=== PATIENT | female | born 1985 | race Caucasian/White ===

== ENCOUNTER 2016-09-04 20:32 | Emergency (ER) | payer OTHER ==
[2016-09-04 20:50] VITALS: BMI 33.1
--- NOTE | 2016-09-04 20:56 | EDPRACDOC ---
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 PT STATES HAD "THE FLU" 2 WEEKS AGO, TREATED WITH TAMIFLU, WAS FEELING BETTER UNTIL THIS WEEK. Symptoms Started: Reports: Gradually Symptoms Description: Constant Weakness: Bilateral: Generalized Symptoms: Reports: Weak. Denies: Change of vision, Difficult speech, Faintness , Imbalance, Numbness, Near Syncope, On Med questionable toxic, Syncope, Tinnitus, Vertigo Symptom Severity: Reports: Does not affect activitiy Relevant History of: Denies: Anemia, CVA, DM, Electrolyte disorder, GI Bleed, [place] , TIA Associated signs and symptoms:: Reports: Fever, Headache, Palpitations. Denies : GI Bleed, Chest pain, Diarrhea, Nausea, Vomiting ED Past Medical History - History Reviewed Yes Nurses notes reviewed and agree except as marked No Past Medical History: Yes Patient has no past medical history - Patient Medical History Psychological History: Denies: Depression Surgical History: Reports: Cholecystectomy, Hysterectomy, Tonsillectomy/ Adnoidectomy - Social Medical History Smoking Status: Never smoker ETOH: None Substance Abuse: None EDM Review of Systems - Review of Systems Constitutional: Chills, Fever, Fatigue, Weakness Eyes: negative: Blurred Vision, Double Vision Ears: negative: Drainage Throat: negative: Pain Nose: negative: Congestion, Discharge Respiratory: Cough, Shortness of Breath. negative: Wheezing Cardiovascular: Palpitations. negative: Chest Pain Gastrointestinal: negative: Diarrhea, Nausea, Pain, Vomiting Genitourinary: negative: Dysuria, Frequency Neurological: Dizziness, Headache. negative: Numbness, Weakness Musculoskeletal: No Symptoms Reported Integumentary: No Symptoms Reported - Physical Exam Constitutional: Alert (Awake), No apparent distress Oriented to: Time, Person, Place Last recorded Vital Signs: Last Vital Signs Temp 98.4 F 09/04/16 20:42 Pulse 160 H 09/04/16 20:42 Resp 20 09/04/16 20:42 BP 134/62 09/04/16 20:42 Pulse Ox 98 09/04/16 20:42 Oxygen Pulse Oxygen Saturation 98 O2 Device Room Air Oxygen Flow Rate Fraction of Inspired Oxygen ( FIO2) - HEENT Head: Normal ( normocephalic) Eye Exam: Normal (PERRL, EOMI, Sclera white) Oropharynx: Normal (Pharynx:Moist without exudate,Gums-no swelling) Tympanic Membrane: Normal ENT EAC: Normal TMJ: Normal Nose: No Symptoms Reported (septum midline) Neck: Normal (FROM, trachea at midline) - Respiratory/Cardiovascular Respiratory: Normal - CTA (BBS clear to auscultation without adventitious sounds ) Cardiovascular: Tachycardia. negative: Irregular, Diastolic murmur, Systolic murmur - GI Auscultation: Normal (NABS) Palpation: Normal (Soft,No rebound or guarding, non distended) Tenderness: Non tender Mayfield's Sign: Negative - Musculoskeletal Back: Normal (Non-Tender) Extremities: Normal (Normal tone, Pulses 2+ No cyanosis or edema, FROM) - Integumentary Skin: Normal, Warm, Dry Lymphatics: Normal (no adenopathy) - Neurologic Memory Impaired: Normal Motor Function: Normal (Normal tone, Pulses 2+ No cyanosis or edema, FROM) Cranial Nerve: Normal (CN II-X11 intact sensation, strength 5/5) Cerebellar: Normal Mood Description: Normal Perception: Normal - Differential Diagnosis Anemia, Dehydration, Dysrhythmia, Electrolyte disorder, Medication toxicity - Re-evaluation Re-evaluation 1 Re-evaluation Time: 22:13 (STATES CONTINUES TO FEEL "FUNNY" IN HER CHEST, DIZZY) Re-evaluation 2 Re-evaluation Time: 00:29 (FEELS BETTER, HEART RATE NOW 90s) - Results 09/04/16 21:00 09/04/16 21:00 09/04/16 22:14 Laboratory Results - last 24 hr 09/04/16 09/04/16 09/04/16 21:00 21:00 21:00 WBC 9.9 RBC 5.11 Hgb 14.3 Hct 41.5 MCV 81 MCH 28.0 MCHC 34.5 RDW 13.5 Plt Count 248 MPV 8.0 Neut % (Auto) 63.6 Lymph % (Auto) 26.1 [place] % (Auto) 7.8 Eos % (Auto) 1.8 Baso % (Auto) 0.7 Absolute Neuts (auto) 6.24 Absolute Lymphs (auto) 2.57 PT 10.7 INR 1.0 APTT 24.5 D-Dimer Quant (PE/DVT) Sodium 142 Potassium 3.5 Chloride 104 Carbon Dioxide 25 Anion Gap 17 H BUN 8 Creatinine 0.60 Estimated GFR (MDRD) > 60 Glucose 92 Calculated Osmolality 271 Calcium 9.3 Total Bilirubin 0.5 AST 21 ALT 30 Alkaline Phosphatase 65 Troponin I < 0.01 [id number] Pept 31 Total Protein 7.6 Albumin 4.4 Lipase 75 Urine Color Urine Clarity Urine pH Ur Specific [place] Urine Protein Urine Glucose (UA) Urine Ketones Urine Occult Blood Urine Nitrite Urine Bilirubin Urine Urobilinogen Ur Leukocyte Esterase Urine RBC Ur Epithelial Cells Urine Mucus Urine Test Monoscreen 09/04/16 09/04/16 09/04/16 21:00 21:00 21:00 WBC RBC Hgb Hct MCV MCH MCHC RDW Plt Count MPV Neut % (Auto) Lymph % (Auto) [place] % (Auto) Eos % (Auto) Baso % (Auto) Absolute Neuts (auto) Absolute Lymphs (auto) PT INR APTT D-Dimer Quant (PE/DVT) 433 Sodium Potassium Chloride Carbon Dioxide Anion Gap BUN Creatinine Estimated GFR (MDRD) Glucose Calculated Osmolality Calcium Total Bilirubin AST ALT Alkaline Phosphatase Troponin I [id number] Pept Total Protein Albumin Lipase Urine Color Dark yellow Urine Clarity Sl cldy Urine pH 6.0 Ur Specific Boomer 1.030 Urine Protein 1+ H Urine Glucose (UA) Neg Urine Ketones Neg Urine Occult Blood Neg Urine Nitrite Neg Urine Bilirubin Neg Urine Urobilinogen 2 H Ur Leukocyte Esterase Neg Urine RBC 2-5 Ur Epithelial Cells 2+ Urine Mucus Large Urine Test Monoscreen Neg 09/04/16 21:00 WBC RBC Hgb Hct MCV MCH MCHC RDW Plt Count MPV Neut % (Auto) Lymph % (Auto) [place] % (Auto) Eos % (Auto) Baso % (Auto) Absolute Neuts (auto) Absolute Lymphs (auto) PT INR APTT D-Dimer Quant (PE/DVT) Sodium Potassium Chloride Carbon Dioxide Anion Gap BUN Creatinine Estimated GFR (MDRD) Glucose Calculated Osmolality Calcium Total Bilirubin AST ALT Alkaline Phosphatase Troponin I [id number] Pept Total Protein Albumin Lipase Urine Color Urine Clarity Urine pH Ur Specific [place]omer Urine Protein Urine Glucose (UA) Urine Ketones Urine Occult Blood Urine Nitrite Urine Bilirubin Urine Urobilinogen Ur Leukocyte Esterase Urine RBC Ur Epithelial Cells Urine Mucus Urine Test Neg Monoscreen - EKG EKG #1 EKG Time: 20:54 -: Yes EKG interpreted by me Rate: bpm: 131 [place]: Normal Rhythm: ST Block: None Hypertrophy: None ST: Nonsp Comments: NO OLD EKG FOR COMPARISON - Diagnostic Imaging CXR Image interpreted by: Radiologist CHEST 2 VIEW COMPARISON: 11/15/2012 FINDINGS: Normal heart size, mediastinal contours, and pulmonary vascularity. Lungs clear. No pneumothorax. Bones unremarkable. IMPRESSION: No acute abnormalities. CT HEAD Image interpreted by: Radiologist CT HEAD WITHOUT CONTRAST TECHNIQUE: Contiguous axial images were obtained from the base of the skull through the vertex without intravenous contrast. COMPARISON: 06/07/2012 FINDINGS: Normal ventricular morphology. No midline shift or mass effect. Normal appearance of brain parenchyma. No intracranial hemorrhage, mass lesion, or acute infarction. Visualized paranasal sinuses and mastoid air cells clear. Bones unremarkable. IMPRESSION: Normal exam. Decision Time to Discharge: 00:43 - Departure Disposition: Home Condition: Stable Final Diagnosis: Palpitations, Dehydration Instructions: Palpitations (ED) Education/Counseling Given To: Patient Education/Counseling Given Regarding: Diagnosis, Treatment, Prognosis, Follow Up Referrals: None,No Provider [Primary Care Provider] - One Week Additional Instructions: REST, DRINK PLENTY OF FLUIDS, STOP USING OVER THE COUNTER [employer]ON[employer]ANTS, DECREASE CAFFEINE INTAKE.
[2016-09-04] MEDS ORDERED: NS 1,000 ML IV ONE ×2 (20:57→22:11)
--- NOTE | 2016-09-04 21:20 | DIRPT ---
CLINICAL DATA: Shortness of breath, fever, generalized weakness, chills, symptoms for last several days, temperature 103 degrees tonight, chest pressure, headache, tachycardia EXAM: CHEST 2 VIEW COMPARISON: 11/15/2012 FINDINGS: Normal heart size, mediastinal contours, and pulmonary vascularity. Lungs clear. No pneumothorax. Bones unremarkable. IMPRESSION: No acute abnormalities. Electronically Signed By: Ross Peetrson M.D. On: 09/04/2016 21:17
[2016-09-04 21:32] LABS: AUTOMATED BASOPHIL 0.7 % (0-2); AUTOMATED EOSINOPHIL 1.8 % (0-5); AUTOMATED LYMPH 26.1 % (17-44); AUTOMATED MONOCYTE 7.8 % (3-10); AUTOMATED NEUTROPHIL 63.6 % (45-76)
[2016-09-04 21:36] LABS: LEUKOCYTES/URINE NEG (NEGATIVE); NITRITE/URINE NEG (NEGATIVE); URINE OCCULT BLOOD NEG (NEG/TRACE)
[2016-09-04 21:41] LABS: BLOOD UREA NITROGEN 8 MG/DL (7-17); CALCIUM 9.3 MG/DL (8.4-10.2); CALCULATED OSMOLALITY 271 MOs/Kg (270-290); CHLORIDE 104 mEq/L (98-107); GLUCOSE 92 MG/DL (70-99); SODIUM LEVEL 142 mEq/L (137-146); TOTAL PROTEIN 7.6 G/DL (6.3-8.2)
[2016-09-04 21:43] LABS: PARTIAL THROMB. TIME 24.5 SEC (22-35)
--- NOTE | 2016-09-04 23:21 | DIRPT ---
CLINICAL DATA: Dizziness, tachycardia, headache for 1 week, diagnosed with the flu 2 weeks ago EXAM: CT HEAD WITHOUT CONTRAST TECHNIQUE: Contiguous axial images were obtained from the base of the skull through the vertex without intravenous contrast. COMPARISON: 06/07/2012 FINDINGS: Normal ventricular morphology. No midline shift or mass effect. Normal appearance of brain parenchyma. No intracranial hemorrhage, mass lesion, or acute infarction. Visualized paranasal sinuses and mastoid air cells clear. Bones unremarkable. IMPRESSION: Normal exam. Electronically Signed By: Ross Peterson M.D. On: 09/04/2016 23:18
[2016-09-05] MEDS ORDERED: METOPROLOL TARTRATE 25 MG TAB PO ONE (00:22)
[2016-09-05 00:51] VITALS: BP 132/80; PULSE 103; TEMP 98.6
== END 2016-09-05 00:50 | disposition home or self-care (01) ==
LOC: ED 20:32
DX: R00.2 Palpitations (principal); E86.0 Dehydration; R51 Headache
CPT/HCPCS: 36415; 70450; 71020; 80053; 81001; 81025; 83690; 83880; 84484; 85025; 85379; 85610; 85730; 86308; 93005; 96360; 96361; 99284